=== PATIENT | male | born 1995 | race Two or more races ===

== ENCOUNTER 2024-06-08 17:46 | Emergency (ER) | payer MEDICAID, OTHER ==
[~2024-06-08] VITALS: Ht 177.8 cm; Wt 104.5 kg
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
[2024-06-08 18:36] LABS: Potassium 3.6 mmol/L (3.5-5.1); Sodium 138 mmol/L (136-145)
[2024-06-08 18:37] LABS: Anion Gap 11 (5-15)
[2024-06-08 18:42] LABS: Carbon Dioxide 19 mmol/L (20-31); Chloride 108 mmol/L (98-107)
[2024-06-08 18:43] LABS: BUN/Creatinine Ratio 11.8 (10.0-20.0); Blood Urea Nitrogen 11 mg/dL (9-23)
[2024-06-08 18:45] LABS: Glucose 112 mg/dL (74-106)
[2024-06-08] MEDS: levETIRAcetam 1000 mg/100ml 100 ML IV ONE (18:59)
[2024-06-08] MEDS: LORazepam 2MG/ML-1ML VIAL IV ONE (19:00)
[2024-06-08] MEDS: SODIUM CHLORIDE 0.9% 1,000 ML IVB ONE (19:00)
[2024-06-08 19:02] LABS: Basophils # (auto) 0 10 ^3/uL (0-0.2); Basophils % (auto) 0.6 % (0.0-2.0); Eosinophils # (auto) 0.3 10 ^3/uL (0-0.8); Eosinophils % (auto) 3.9 % (0.0-7.0); Hematocrit 47.4 % (41.0-53.0); Hemoglobin 16.6 g/dL (13.5-17.5); Lymphocytes # (auto) 2.5 10 ^3/uL (0.4-5.4); Lymphocytes % (auto) 33.8 % (10.0-50.0); Mean Corpuscular Hemoglobin 30.9 pg (28.0-32.0); Mean Corpuscular Hgb Conc. 35.1 g/dL (32.0-36.0); Monocytes # (auto) 0.4 10 ^3/uL (0-1.3); Monocytes % (auto) 4.9 % (0.0-12.0); Neutrophils # (auto) 4.2 10 ^3/uL (1.6-8.6); Neutrophils % (auto) 56.8 % (37.0-80.0); Nucleated Red Blood Cells % 0.2 %; Platelet Count (auto) 211 10^3/uL (140-450); Red Blood Cells 5.38 10^6/uL (4.5-5.90); Red Cell Distribution Width 12.8 % (11.8-14.3); White Blood Cell 7.4 10^3/uL (4.4-10.8)
[2024-06-08] MEDS: MORPHINE SULFATE 4 MG/ML SYR/VIAL IV ONE (19:15)
[2024-06-08] MEDS: ONDANSETRON HCL 4 MG/2 ML VIAL IV ONE (19:58)
[2024-06-08 20:00] VITALS: BP 109/70; PULSE 73; TEMP 97.7
--- NOTE | 2024-06-08 20:08 | DVH ---
EXAM: CT HEAD WITHOUT CONTRAST INDICATION: MILIAN TECHNIQUE: CT of the head without intravenous contrast. Radiation Dose Information: CT Dose: CTDI volume is 58.76 mGy. Dose-length product is 1059.39 mGy*cm The dose indicators for CT are the volume Computed Tomography (CT) Dose Index (CTDIvol) and the Dose Length Product (DLP), and are measured in units of mGy and mGy-cm, respectively. These indicators are not patient dose, but values generated from the CT scanner acquisition factors. The report includes radiation exposure data for exposures received during this examination. COMPARISON: None FINDINGS: There is no evidence of acute intracranial hemorrhage, extra-axial collection, mass effect, midline s hift, herniation or hydrocephalus. The ventricles, sulci and cisterns are age appropriate. The campo-white differentiation is intact. Patchy periventricular and subcortical white matter hypoattenuation is nonspecific but may be related to small vessel ischemic disease. The visualized paranasal sinuses and mastoid air cells are clear. The surrounding soft tissues and osseous structures are unremarkable. IMPRESSION: 1. No acute intracranial abnormality.
[2024-06-08 21:06] VITALS: RESP 18; O2SAT 98
== END 2024-06-08 22:37 | disposition home or self-care (01) ==
LOC: EDBD 17:46 → ER 17:53
DX: G40.909 Epilepsy, unspecified, not intractable, without status epilepticus (principal); F41.9 Anxiety disorder, unspecified; R51.9 Headache, unspecified; F12.90 Cannabis use, unspecified, uncomplicated
CPT/HCPCS: 36415; 70450; 80048; 85025; 96365; 96375; 99285; J1953; J2060; J2270; J2405